=== PATIENT | female | born 1945 | race Caucasian/White ===

== ENCOUNTER → 2017-01-09 09:17 | Outpatient (CLI) | payer MEDICARE, BC ==
[2014-04-19 12:40] VITALS: BMI 27.0
[~2017-01-09 09:17] MED LIST: BAYER CHEWABLE81 MG PO; BRILINTA90 MG PO; CLARITIN 10 MG10 MG PO; COZAAR100 MG PO
== END ==
LOC: D.MAMMO 09:17
DX: Z12.31 Encounter for screening mammogram for malignant neoplasm of breast (principal)

== ENCOUNTER → 2018-01-09 21:28 | Outpatient (CLI) | payer MEDICARE, BC ==
[2014-04-19 12:40] VITALS: BMI 27.0
== END | disposition home or self-care (01) ==
LOC: D.MAMMO 10:45
DX: Z12.31 Encounter for screening mammogram for malignant neoplasm of breast (principal)

== ENCOUNTER 2019-01-22 09:00 | Outpatient (CLI) | payer MEDICARE, BC ==
[2014-04-19 12:40] VITALS: BMI 27.0
== END 2019-01-22 10:00 | disposition home or self-care (01) ==
LOC: D.MAMMO 09:00
PROVIDERS: ATTEND Family Medicine
DX: Z12.31 Encounter for screening mammogram for malignant neoplasm of breast (principal)

== ENCOUNTER 2019-02-15 08:00 | Outpatient (CLI) | payer MEDICARE, BC ==
[2014-04-19 12:40] VITALS: BMI 27.0
== END 2019-02-15 23:59 | disposition home or self-care (01) ==
LOC: D.MAMMO 08:00
PROVIDERS: ATTEND Family Medicine
DX: R92.2 Inconclusive mammogram (principal)

== ENCOUNTER 2020-01-25 11:00 | Outpatient (CLI) | payer MEDICARE, OTHER ==
[2014-04-19 12:40] VITALS: BMI 27.0
== END 2020-01-25 11:15 | disposition home or self-care (01) ==
LOC: D.MAMMO 11:00
PROVIDERS: ATTEND Family Medicine
DX: Z12.31 Encounter for screening mammogram for malignant neoplasm of breast (principal)

== ENCOUNTER → 2020-02-02 09:39 | Outpatient (CLI) | payer MEDICARE, OTHER ==
[2014-04-19 12:40] VITALS: BMI 27.0
== END | disposition home or self-care (01) ==
LOC: D.HCCARDIO 09:39
PROVIDERS: ATTEND Internal Medicine Cardiovascular Disease
DX: I25.10 Atherosclerotic heart disease of native coronary artery without angina pectoris (principal)